=== PATIENT | female | born 1960 | race Caucasian/White ===

== ENCOUNTER 2016-06-11 13:24 | Day surgery (SDC) | payer MEDICARE, BC ==
[~2016-06-11 13:24] MED LIST: ACETAMINOPHEN WITH CODEINE 1 EACH TABLET PO PRN; GENTAMICIN SULFATE 80 MG in DEXTROSE 5 % IN WATER 100 ML IV PRN; MORPHINE SULFATE 2 MG/ML DISP.SYRIN IV PRN; OXYBUTYNIN CHLORIDE 5 MG TABLET PO PRN; RINGERS SOLUTION,LACTATED 1,000 ML IV PRN; oxyCODONE HCL/ACETAMINOPHEN 1 TAB TABLET PO PRN
[2016-06-11] MEDS ORDERED: BOTULINUM TOXIN TYPE A 100 UNITS VIAL IM PRN (14:26)
[2016-06-11] MEDS ORDERED: ONABOTULINUMTOXINA IM ONE (14:30)
[2016-06-11] MEDS ORDERED: RINGERS SOLUTION,LACTATED 1,000 ML IV ONE (15:00)
[2016-06-11] MEDS ORDERED: ceFAZolin SODIUM 1 GM VIAL IV ONE (15:05)
[2016-06-11 16:39] VITALS: BP 111/61
== END 2016-06-11 13:25 | disposition home or self-care (01) ==
LOC: AMB 13:24
PROVIDERS: ATTEND Urology
PROC: 3E0K8GC Introduction of Other Therapeutic Substance into Genitourinary Tract, Via Natural or Artificial Opening Endoscopic (ICD-10-PCS; principal; 2016-06-11 14:30)
DX: N39.41 Urge incontinence (principal); R35.0 Frequency of micturition; E78.5 Hyperlipidemia, unspecified; E03.9 Hypothyroidism, unspecified; I73.9 Peripheral vascular disease, unspecified; Z87.891 Personal history of nicotine dependence; Z68.37 Body mass index [BMI] 37.0-37.9, adult; Z87.440 Personal history of urinary (tract) infections
CPT/HCPCS: 52287; 87077; 87086; 87186; J0585

== ENCOUNTER 2019-04-11 03:01 | Inpatient (IN) ==
--- NOTE | 2019-04-11 03:18 | ERNOTE ---
Neuro HPI ER Record Time Seen by Provider: 04/11/19 03:01 Source: family, EMS Exam Limitations: clinical condition Immunizations: IMMUNIZATION HX Immunizations Up to Date No History of Influenza Vaccine No Hx Pneumococcal Vaccination No Allergies/Adverse Reactions: Allergies Allergy/AdvReac Type Severity Reaction Status Date / Time sulfamethoxazole Allergy Mild Hives Verified 04/09/19 13:47 [From Bactrim] trimethoprim [From Bactrim] Allergy Mild Hives Verified 04/09/19 13:47 Home Medications: HOME MEDICATIONS amitriptyline 100 mg tablet 100 mg PO HS #30 tab 05/11/18 [Last Taken Unknown] methenamine hippurate 1 gram tablet 100 mg PO BID tab 06/21/18 [Last Taken Unk nown] polyethylene glycol 3350 17 gram/dose oral powder 17 gm PO DAILY g 06/21/18 [Last Taken Unknown] vitamin B complex 1 tab PO DAILY 06/21/18 [Last Taken Unknown] levothyroxine 200 mcg tablet 200 mcg PO DAILY #30 tab 06/22/18 [Last Taken Unknown] chlorthalidone 25 mg tablet 25 mg PO DAILY #30 tab 09/01/18 [Last Taken Unknown] furosemide 40 mg tablet 40 mg PO DAILY #30 tab 09/01/18 [Last Taken Unknown] famotidine 20 mg tablet 20 mg PO DAILY #30 tab 10/09/18 [Last Taken Unknown] olanzapine 10 mg tablet 10 mg PO DAILY #30 tab 11/06/18 [Last Taken Unknown] ergocalciferol (vitamin D2) 50,000 unit capsule 50,000 unit PO QWEEK #14 cap 12/04/18 [Last Taken Unknown] atorvastatin 80 mg tablet 80 mg PO DAILY #90 tab 12/05/18 [Last Taken Unknown] bupropion HCl 100 mg tablet,12 hr sustained-release 200 mg PO HS #60 ea 01/02/19 [Last Taken Unknown] potassium chloride 20 mEq tablet,extended release(part/cryst) 40 meq PO BID tab 01/17/19 [Last Taken Unknown] baclofen 20 mg tablet 20 mg PO TID #90 tab 01/29/19 [Last Taken Unknown] lidocaine 5 % topical patch 2 - 3 patch TP DAILY #90 ea 01/29/19 [Last Taken Unknown] naloxegol 25 mg tablet 25 mg PO DAILY #30 tab 01/29/19 [Last Taken Unknown] topiramate 200 mg tablet 200 mg PO BID #60 tab 03/19/19 [Last Taken Unknown] estradiol-norethindrone acet 1 mg-0.5 mg tablet 1 tab PO DAILY #28 tab 04/02/19 [Last Taken Unknown] fentanyl 100 mcg/hr transdermal patch 100 mcg TP Q48H #15 ea 04/04/19 [Last Taken Unknown] trazodone 100 mg tablet 100 mg PO HS #30 tab 04/09/19 [Last Taken Unknown] Aspirin [Aspirin EC] 81 mg PO DAILY 04/11/19 [Last Taken Unknown] Butalb/Acetaminophen/Caffeine [Fioricet] 2 tab PO TID 04/11/19 [Last Taken Unknown] Dantrolene Sodium [Dantrium] 100 mg PO TID 04/11/19 [Last Taken Unknown] Diazepam [Valium] 3 tab PO HS 04/11/19 [Last Taken Unknown] Divalproex Sodium [Depakote ER] 1,000 mg PO HS 04/11/19 [Last Taken Unknown] Docusate Sodium [Colace] 200 mg PO BID 04/11/19 [Last Taken Unknown] Granisetron HCl [Kytril] 1 tab PO BID 04/11/19 [Last Taken Unknown] HYDROmorphone HCL [Dilaudid] 8 mg PO QID 04/11/19 [Last Taken Unknown] LORazepam [Ativan] 0.5 mg PO BID PRN 04/11/19 [Last Taken Unknown] Loratadine 1 tab PO DAILY 04/11/19 [Last Taken Unknown] Mirabegron [Myrbetriq] 25 mg PO DAILY 04/11/19 [Last Taken Unknown] Pumpkin Seed Extract/Soy Germ [Azo Bladder Control Capsule] 300 mg PO PRN PRN 04/11/19 [Last Taken Unknown] SUMAtriptan SUCCINATE [Imitrex] 1 - 2 tab PO DAILY PRN 04/11/19 [Last Taken Unknown] - History of Present Illness Narrative: Patient brought to the ER per EMS with chief complaint of decreased mental status for the past 4-1/2 to 5 hours. is unsure if she took medications or if there is another situation. Onset: >3 hours Severity: severe - Character of Deficits Additional Deficits: Present: cannot walk, cannot stand Baseline Cognition: Present: alert, oriented x 4 Review of Systems - Narrative Narrative: denies knowledge of any recent illnesses any other symptoms other than her chronic back pain. She did see her primary care doctor Dr. Berkowitz 2 days ago and there was a change in medications Medical History (Last Reviewed 04/11/19 @ 03:15 by Terence Mares DO) Knee pain, bilateral (Chronic) Urinary bladder incontinence (Chronic) Allergic rhinitis (Acute) Chronic pain syndrome (Chronic) Managed by [place] [facility] Hyperlipidemia with target LDL less than 100 (Chronic) Bladder wall thickening (Chronic) Hydronephrosis (Chronic) Urinary tract infection in female (Acute) Hernia of abdominal wall Onset Date: ~11/12/14 Hypovitaminosis D Mental status alteration Onset Date: ~07/05/15 Ventral hernia Onset Date: ~07/01/17 [facility] Anxiety Onset Date: ~09/16/13 Chronic GERD 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) Coronary artery disease Edema Onset Date: ~07/09/14 Bilateral in legs, worsening Hyperlipidemia due to dietary fat intake Onset Date: ~1989 Hypertension Onset Date: ~09/16/13 Hypothyroidism Onset Date: ~1979 Lumbar disc disease Onset Date: ~09/16/13 Osteoarthrosis Onset Date: ~09/16/13 Osteoporosis Onset Date: ~09/16/13 PAD (peripheral artery disease) Onset Date: ~09/16/13 Tremor Onset Date: ~07/03/15 UTI (urinary tract infection) Onset Date: 03/2018 Hyperlipidemia (Inactive) Surgical History: Surgical History (Last Reviewed 04/11/19 @ 03:15 by Terence Mares DO) History of back surgery 7 total surgeries- 80s-90s, 2001 Hx of appendectomy Hx of colonoscopy Onset Date: ~03/14/13 ; very capacious, redundant colon Hx of hernia repair Onset Date: ~08/28/17 [facility] Hx of ovarian cystectomy Onset Date: ~1979 Hx of vascular surgery 2006, 2008; Bilateral legs Family History: Family History (Last Reviewed 04/11/19 @ 03:15 by Terence Mares DO) Father , ( @ age 68) Brain tumor Mother , @ age 82 Heart disease Hypertension Social History: (Last Reviewed 04/11/19 @ 03:15 by Terence Mares DO) Social History: Marital status: current occupational status: disabled current occupation: disabled Highest education level completed: some college, no degree Service: No Tobacco: Smoking Status: Never smoker Alcohol: alcohol intake: former Substance Use: substance use type: does not use Dietary Habits: caffeine: No Physical Exam - Physical Exam General Appearance: Present: wd/wn, lethargic - responds to pain Head Exam: Present: normal inspection, no evidence of injury Eye Exam: Normal inspection: bilateral, PERRL: bilateral Ears, Nose, Throat: Present: normal ENT inspection Neck: Present: supple Respiratory: Present: no respiratory distress, no accessory muscle use, lungs clear Cardiovascular/Chest: Present: regular rate, rhythm, no murmur Gastrointestinal/Abdominal: Present: distended. Absent: guarding, rebound Back Exam: Present: other - Patient has multiple lidocaine patches on her mid to low back Extremity Exam: Present: normal inspection, no edema Neurological Exam: Present: other - Patient localizes to pain. Does not follow any instructions Skin Exam: Present: normal color, warm/dry Lymphatic Exam: Present: no adenopathy Zack Coma Scale - Assess Eye Opening: To Pain Motor: Localizes to Pain Verbal: None - Total Coma Scale Total: 8 Progress - Results and Orders Patient's Lab Results:: I have reviewed the patient's lab results. - Vital Signs Patient's Vital Signs:: I have reviewed the patient's vital signs. - EKG EKG #1 EKG: supraventricular tachycardia - sinus tach, RBBB - incomplete - X-Ray X-Ray #1 X-Ray: chest Interpretation: Interp. by me X-ray Comments: Limited AP view of the chest due to poor inspiration. No infiltrate, edema or effusion noted. - CT/Ultrasound CT/Ultrasound Narrative: CT brain without contrast: No acute disease of the brain. - Progress/Reassessment Progress Note-Subjective: 04/11/19 03:38 stated that she has been acting more funny since taking her medications before bedtime and believes it is one of the medications. Possibly a new medication that her PCP gave her at the last visit. Review of the notes with her primary care physician 2 days ago found an increase in trazodone from 50 to 100 mg at at bedtime. 04/11/19 04:21 Patient blood pressure dropped to 68/42 despite IV fluids running at bolus rate, respiratory rate aslo down to 8. Patient was given 0.5 mg of Narcan IV. Pt. was awake and alert but still repeating answers and somewhat confused approximately 10 minutes after administration. Blood pressure quickly came up and need for O2 quickly disappeared 04/11/19 04:23 Patient did complain of increased pain and patient was given 30 mg of Toradol IV 04/11/19 05:38 Approximately 1 hour after the Narcan was given patient began to relax and sleep again. 2 L of oxygen per nasal cannula was again initiated and patient maintaining 95% O2 saturation. Blood pressure began to fall IV normal saline was again initiated at 999 mils per hour. She was placed in Trendelenburg and blood pressure continued to drop and Levophed drip was ordered. 04/11/19 06:[address] Arrieta at 05:55 and she agrees with admission to the SCU. Departure Clinical Impression: Acute alteration in mental status Medication overdose Qualifiers: Encounter type: initial encounter Injury intent: accidental or unintentional Qualified Code(s): T50.901A - Poisoning by unspecified drugs, medicaments and biological substances, accidental (unintentional), initial encounter Hypotension Qualifiers: Hypotension type: hypotension due to drug Qualified Code(s): I95.2 - Hypotension due to drugs - Departure Disposition: Still a patient Condition: Serious
[2019-04-11 03:29] LABS: Hematocrit 44.6 % (37.0-47.0); Hemoglobin 14.2 gm/dL (12.5-16.0); Mean Cell Volume 98.5 fl (78-100); Mean Corpuscular Hemoglobin 31.3 pg (27-31); Mean Corpuscular Hgb Conc 31.8 g/dl (32-36); Mean Platelet Volume 9.9 fl (8-12.5); Neutrophil # 4.4 K/mm3 (1.3-6.0); Neutrophil % 66.4 % (42-75.0); Platelet Count 230 K/mm3 (150-450); Red Blood Count 4.53 M/mm3 (4.2-5.4); Red Cell Distribution Width 13.6 % (11.5-14.0); White Blood Count 6.6 K/mm3 (4.0-10.5)
[2019-04-11] MEDS ORDERED: NORMAL SALINE 1,000 ML IV ONE ×2 (03:37→05:26)
[2019-04-11 03:41] LABS: INR 1.01 INR (0.92-1.08)
[2019-04-11 03:42] LABS: Urine Bilirubin Negative (NEGATIVE); Urine Blood 50 /ul (NEGATIVE); Urine Ketone Negative (NEGATIVE); Urine Nitrite Negative (NEGATIVE); Urine Protein 30 mg/dL (NEGATIVE); Urine Specific Gravity 1.025 SP.GR. (1.005-1.010); Urine Urobilinogen Normal (NORMAL); Urine pH 5.5 pH (5.0-7.0)
[2019-04-11 03:43] LABS: Albumin * 3.4 gm/dl (3.4-5.0); Anion Gap 16.4 mmol/L (6.8-13.8); BUN/Creatinine Ratio 24.8 (9.0-21.6); Bilirubin, Total 0.2 mg/dL (0.0-1.1); Calcium * 8.8 mg/dL (7.9-10.9); Carbon Dioxide 24.5 mmol/L (24-32.6); Potassium 2.9 mmol/L (3.4-4.6); Total Protein 7.7 gm/dL (6.2-8.2)
[2019-04-11 03:48] LABS: Urine Amorphous Sediment Moderate - 2+ (NONE-FEW); Urine Appearance Slightly Cloudy (CLEAR); Urine Bacteria 2+; Urine Color Yellow; Urine RBC TRACE /hpf (0-5); Urine WBC 0-5 /hpf (0-5)
[2019-04-11] MEDS ORDERED: NALOXONE HCL 1 MG/1 ML SYRG IV ONE (03:49)
[2019-04-11 03:54] LABS: Cocaine Ur Negative (NEGATIVE); Urine Barbiturate Positive (NEGATIVE); Urine Benzodiazepines Positive (NEGATIVE); Urine Opiates Positive (NEGATIVE); Urine PCP Negative (NEGATIVE); Urine THC Negative (NEGATIVE)
[2019-04-11] MEDS ORDERED: KETOROLAC TROMETHAMINE 30 MG/ML VIAL IV ONE (04:15)
[2019-04-11 04:24] LABS: Salicylate 13.8 mg/dL (2.8-20.0)
[2019-04-11] MEDS ORDERED: ACETAMINOPHEN 1,000 MG/100 ML BTL IV ONE (04:32)
[2019-04-11] MEDS ORDERED: NOREPINEPHRINE BITARTRATE 4 MG in DEXTROSE 5 % IN WATER 496 ML IV PRN ×2 (05:36)
[2019-04-11] MEDS: POTASSIUM CHLORIDE IN WATER 100 ML IV SCH ×5 (06:16→10:12)
[2019-04-11 06:44] LABS: Valproic Acid 47.3 mcg/mL (50.0-100.0)
--- NOTE | 2019-04-11 08:57 | ANES ---
Anesthesia Procedure Note Procedure Note: ANESTHESIA PROCEDURE NOTE Date of Procedure: [04/11/2019 Time of procedure: 8:35 AM. Performed by: FELTON Quiñones CRNA, MSN Preprocedure diagnosis: Altered mental status, hypotension, lack of venous access. Post procedure diagnosis: Same. Procedure: Venipuncture for IV access. Indications: Lack of venous access, hypotension. Findings: See below. Details of the procedure: The patient was prepped with Betadine and alcohol, using a lighted vein finder, a number 22-gauge IV was initiated in the right foot. The IV was flushed with sterile saline solution and secured in place by the attending RN. EBL: Minimal. Fluids: N/A. Specimen: N/A. Post procedure condition: The patient tolerated the procedure well with 1 verbalization, which I assume her presented pain, as the needle was entering the vein. No complications were noted. Thank you for this consultation. Diogenes Macdonald CRNA, ARNP, MSN
[2019-04-11] MEDS ORDERED: PHENTOLAMINE MESYLATE 5 MG/ML VIAL ID ONE (09:45)
[2019-04-11] MEDS: NORMAL SALINE 1,000 ML IV PRN (09:52)
[2019-04-11] MEDS ORDERED: HYDROmorphone HCL 2 MG TABLET PO PRN (10:27)
[2019-04-11] MEDS ORDERED: HYALURONIDASE,OVINE 200 UNIT/ML VIAL ID ONE (10:45)
[2019-04-11 11:19] LABS: Anion Gap 12.8 mmol/L (6.8-13.8); BUN/Creatinine Ratio 25.2 (9.0-21.6); Calcium * 7.9 mg/dL (7.9-10.9); Carbon Dioxide 25.8 mmol/L (24-32.6); Estimated Creat Clear 44.2; Potassium 4.6 mmol/L (3.4-4.6); Salicylate 6.1 mg/dL (2.8-20.0)
[2019-04-11] MEDS: ENOXAPARIN SODIUM 40 MG/0.4 ML SYRG SC SCH (11:24)
--- NOTE | 2019-04-11 11:34 | HP ---
Chief Complaint - Chief Complaint Date of Service: 04/11/19 Time of Service: 11:12 Chief Complaint: Obtunded History of Present Illness: This is a 58-year-old woman who has chronic low back and bilateral knee pain. She has failed back syndrome, having had 7 surgeries on her low back, the most recent in 2001. There are no surgical options remaining. Her pain has been severe, and medication such as NSAIDs and Tylenol have been unhelpful. She has been followed by the pain clinic in [place]. She also has chronic insomnia, anxiety and depression and osteoporosis. Benzodiazepines have failed to help her sleep, so 2 days ago we began a diazepam taper, the medication she has used most recently, which she has found unhelpful. We added trazodone to help her sleep. Her noticed about 10:00 last night that she was lethargic and making no sense. He is not sure exactly what happened, but thinks she may have taken too much medication inadvertently. In the ER she was obtunded responding only to pain. Her potassium was 2.9. Tess rtly after arrival in the ER, her systolic blood pressure dropped to 66. The remainder of her blood work was unremarkable. Specifically her CBC. Aside from the low potassium, her chemistries showed a decreased GFR, which is chronic. Her urine drug screen was as expected. The emergency room started parenteral potassium. They tried several doses of Narcan, and after each 1 she would wake up apparently in pain, so the decision was made to simply let the medication effects wear off. Now she is still obtunded, but will respond to voice and touch. When she awakes she is apparently in pain. Her blood pressure has been supported with fluids and Levophed. Her blood pressure is now doing better, so we will begin a taper of Levophed. She normally wears a fentanyl patch, however does not have one on now. Medical History (Last Reviewed 04/11/19 @ 11:20 by Hoang Bruce MD) Knee pain, bilateral (Chronic) Urinary bladder incontinence (Chronic) Allergic rhinitis (Acute) Chronic pain syndrome (Chronic) Managed by [place] [facility] Hyperlipidemia with target LDL less than 100 (Chronic) Bladder wall thickening (Chronic) Hydronephrosis (Chronic) Urinary tract infection in female (Acute) Hernia of abdominal wall Onset Date: ~06/23/15 Hypovitaminosis D Mental status alteration Onset Date: ~07/05/15 Ventral hernia Onset Date: ~07/01/17 [facility] Anxiety Onset Date: ~09/16/13 Chronic GERD 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) Coronary artery disease Edema Onset Date: ~07/09/14 Bilateral in legs, worsening Hyperlipidemia due to dietary fat intake Onset Date: ~1989 Hypertension Onset Date: ~09/16/13 Hypothyroidism Onset Date: ~1979 Lumbar disc disease Onset Date: ~09/16/13 Osteoarthrosis Onset Date: ~09/16/13 Osteoporosis Onset Date: ~09/16/13 PAD (peripheral artery disease) Onset Date: ~09/16/13 Tremor Onset Date: ~07/03/15 UTI (urinary tract infection) Onset Date: 03/2018 Hyperlipidemia (Inactive) Surgical History: Surgical History (Last Reviewed 04/11/19 @ 11:20 by Hoang Bruce MD) History of back surgery 7 total surgeries- s-s, 2001 Hx of appendectomy Hx of colonoscopy Onset Date: ~03/14/13 ; very capacious, redundant colon Hx of hernia repair Onset Date: ~08/28/17 [facility] Hx of ovarian cystectomy Onset Date: ~1979 Hx of vascular surgery 2006, 2008; Bilateral legs Family History: Family History (Last Reviewed 04/11/19 @ 11:20 by Hoang Bruce MD) Father , ( @ age 68) Brain tumor Mother , @ age 82 Heart disease Hypertension Social History: (Last Reviewed 04/11/19 @ 11:20 by Hoang Bruce MD) Social History: Marital status: current occupational status: disabled current occupation: disabled Highest education level completed: some college, no degree Service: No Tobacco: Smoking Status: Never smoker Alcohol: alcohol intake: former Substance Use: substance use type: does not use Dietary Habits: caffeine: No Review Of Systems (GEN) - Review of Systems Generalized/Overall Review: Present: No Symptoms Reported - Unable to provide most of the review of systems because she is lethargic. She still makes no sense when she tries to talk. It appears on the other hand that she is having back pain, plus pain in the site where she is getting potassium riders. Additional Comments: We will repeat her BMP now, and poison control has recommended a repeat salicylate level which we will also do. Immunizations: IMMUNIZATION HX Immunizations Up to Date No History of Influenza Vaccine No Hx Pneumococcal Vaccination No Allergies/Adverse Reactions: Allergies Allergy/AdvReac Type Severity Reaction Status Date / Time sulfamethoxazole Allergy Mild Hives Verified 04/09/19 13:47 [From Bactrim] trimethoprim [From Bactrim] Allergy Mild Hives Verified 04/09/19 13:47 Home Medications: HOME MEDICATIONS methenamine hippurate 1 gram tablet 100 mg PO BID tab 06/21/18 [Last Taken Unknown] polyethylene glycol 3350 17 gram/dose oral powder 17 gm PO DAILY g 06/21/18 [Last Taken Unknown] vitamin B complex 1 tab PO DAILY 06/21/18 [Last Taken Unknown] levothyroxine 200 mcg tablet 200 mcg PO DAILY #30 tab 06/22/18 [Last Taken Unknown] chlorthalidone 25 mg tablet 25 mg PO DAILY #30 tab 09/01/18 [Last Taken Unknown] furosemide 40 mg tablet 40 mg PO DAILY #30 tab 09/01/18 [Last Taken Unknown] famotidine 20 mg tablet 20 mg PO DAILY #30 tab 10/09/18 [Last Taken Unknown] olanzapine 10 mg tablet 10 mg PO DAILY #30 tab 11/06/18 [Last Taken Unknown] ergocalciferol (vitamin D2) 50,000 unit capsule 50,000 unit PO QWEEK #14 cap 12/04/18 [Last Taken Unknown] atorvastatin 80 mg tablet 80 mg PO DAILY #90 tab 12/05/18 [Last Taken Unknown] bupropion HCl 100 mg tablet,12 hr sustained-release 200 mg PO HS #60 ea 01/02/19 [Last Taken Unknown] potassium chloride 20 mEq tablet,extended release(part/cryst) 40 meq PO BID tab 01/17/19 [Last Taken Unknown] baclofen 20 mg tablet 20 mg PO TID #90 tab 01/29/19 [Last Taken Unknown] lidocaine 5 % topical patch 2 - 3 patch TP DAILY #90 ea 01/29/19 [Last Taken Unknown] naloxegol 25 mg tablet 25 mg PO DAILY #30 tab 01/29/19 [Last Taken Unknown] topiramate 200 mg tablet 200 mg PO BID #60 tab 03/19/19 [Last Taken Unknown] estradiol-norethindrone acet 1 mg-0.5 mg tablet 1 tab PO DAILY #28 tab 04/02/19 [Last Taken Unknown] fentanyl 100 mcg/hr transdermal patch 100 mcg TP Q48H #15 ea 04/04/19 [Last Taken Unknown] trazodone 100 mg tablet 100 mg PO HS #30 tab 04/09/19 [Last Taken Unknown] Aspirin [Aspirin EC] 81 mg PO DAILY 04/11/19 [Last Taken Unknown] Butalb/Acetaminophen/Caffeine [Fioricet] 2 tab PO TID PRN 04/11/19 [Last Taken Unknown] Dantrolene Sodium [Dantrium] 100 mg PO TID 04/11/19 [Last Taken Unknown] Diazepam [Valium] 2 mg PO HS 04/11/19 [Last Taken Unknown] Divalproex Sodium [Depakote ER] 1,000 mg PO HS 04/11/19 [Last Taken Unknown] Docusate Sodium [Colace] 200 mg PO BID 04/11/19 [Last Taken Unknown] Granisetron HCl [Kytril] 1 tab PO BID 04/11/19 [Last Taken Unknown] HYDROmorphone HCL [Dilaudid] 8 mg PO QID 04/11/19 [Last Taken Unknown] LORazepam [Ativan] 0.5 mg PO BID PRN 04/11/19 [Last Taken Unknown] Loratadine 10 mg PO DAILY 04/11/19 [Last Taken Unknown] Mirabegron [Myrbetriq] 25 mg PO DAILY 04/11/19 [Last Taken Unknown] Pumpkin Seed Extract/Soy Germ [Azo Bladder Control Capsule] 300 mg PO PRN PRN 04/11/19 [Last Taken Unknown] SUMAtriptan SUCCINATE [Imitrex] 1 - 2 tab PO DAILY PRN 04/11/19 [Last Taken Unknown] Exam - Exam Vital Signs: Vital Signs - Last Taken Temp 36.9 C 04/11/19 10:40 Pulse 102 H 04/11/19 10:49 Resp 14 04/11/19 10:49 BP 120/60 04/11/19 10:49 Pulse Ox 99 04/11/19 10:49 Constitutional: Present: Well developed, Well nourished, No distress, Lethargic, Looks Older than stated age ENT Exam: Present: normal ENT inspection Eye Exam: bilateral eye: normal inspection, PERRL Neck: Present: normal inspection. Absent: lymphadenopathy (R), lymphadenopathy (L), thyromegaly Back Exam: Present: normal inspection, other - has apparent pain when pressure is applied to her lumbosacral spine Respiratory: Present: lungs clear, no respiratory distress Cardiovascular/Chest: Present: regular rate, rhythm, no gallop, no JVD, no murmur, edema - Chronic edema in her lower extremities. Peripheral Pulses: carotid (R): 1+, carotid (L): 1+, femoral (R): 1+, femoral (L): 1+ Abdomen: Present: Normal bowel sounds, soft, nondistended, no hepatospenomegaly, no masses, obese - BMI is 30 /Rectal: Present: Exam deferred Extremity: Present: normal capillary refill, lower extremity edema Skin Exam: Present: no cyanosis, cool/dry, pallor Lymphatic: Present: no adenopathy Neurologic: Present: other - Is normally wheelchair-bound. Absent: alert, oriented x 3 Appearance: Present: appropriate appearance Eye contact: Absent: good eye contact, normal speech, decreased rate of speech Thoughts: Present: incoherent Diagnostic Studies: Abnormal Lab Results 04/11/19 04/11/19 04/11/19 Range/Units 03:10 03:28 03:28 MCH 31.3 H (27-31) pg MCHC 31.8 L (32-36) g/dl Immature Gran % (Auto) 0.60 H (0.001-0.429) % Immature Gran # (Auto) 0.04 H (0.000-0.0310) K/mm3 Lymphocytes # 1.41 L (1.5-3.5) k/mm3 ESR 52 H (0-15) mm/hr Potassium (3.4-4.6) mmol/L Anion Gap (6.8-13.8) mmol/L BUN (3-23) mg/dL Est GFR (Non-Af Amer) (60-130) mL/min BUN/Creatinine Ratio (9.0-21.6) Random Glucose (70-110) mg/dL ALT (19-67) U/L Urine Protein (NEGATIVE) mg/dL Urine Blood (NEGATIVE) /ul Ur Leukocyte Esterase (NEGATIVE) /ul Amorphous Sediment (NONE-FEW) Urine Bacteria (NONE) Urine Opiates Screen (NEGATIVE) Acetaminophen (10.0-30.0) mcg/mL Barbiturate Screen (NEGATIVE) Valproic Acid 47.3 L (50.0-100.0) mcg/mL U Benzodiazepines Scrn (NEGATIVE) 04/11/19 04/11/19 04/11/19 Range/Units 03:28 03:28 03:34 MCH (27-31) pg MCHC (32-36) g/dl Immature Gran % (Auto) (0.001-0.429) % Immature Gran # (Auto) (0.000-0.0310) K/mm3 Lymphocytes # (1.5-3.5) k/mm3 ESR (0-15) mm/hr Potassium 2.9 L (3.4-4.6) mmol/L Anion Gap 16.4 H (6.8-13.8) mmol/L BUN 31 H (3-23) mg/dL Est GFR (Non-Af Amer) 46 L D (60-130) mL/min BUN/Creatinine Ratio 24.8 H (9.0-21.6) Random Glucose 139 H (70-110) mg/dL ALT 9 L (19-67) U/L Urine Protein 30 H (NEGATIVE) mg/dL Urine Blood 50 H (NEGATIVE) /ul Ur Leukocyte Esterase 100 H (NEGATIVE) /ul Amorphous Sediment Moderate - 2+ H (NONE-FEW) Urine Bacteria 2+ H (NONE) Urine Opiates Screen (NEGATIVE) Acetaminophen Less than 0.2 L (10.0-30.0) mcg/mL Barbiturate Screen (NEGATIVE) Valproic Acid (50.0-100.0) mcg/mL U Benzodiazepines Scrn (NEGATIVE) 04/11/19 Range/Units 03:34 MCH (27-31) pg MCHC (32-36) g/dl Immature Gran % (Auto) (0.001-0.429) % Immature Gran # (Auto) (0.000-0.0310) K/mm3 Lymphocytes # (1.5-3.5) k/mm3 ESR (0-15) mm/hr Potassium (3.4-4.6) mmol/L Anion Gap (6.8-13.8) mmol/L BUN (3-23) mg/dL Est GFR (Non-Af Amer) (60-130) mL/min BUN/Creatinine Ratio (9.0-21.6) Random Glucose (70-110) mg/dL ALT (19-67) U/L Urine Protein (NEGATIVE) mg/dL Urine Blood (NEGATIVE) /ul Ur Leukocyte Esterase (NEGATIVE) /ul Amorphous Sediment (NONE-FEW) Urine Bacteria (NONE) Urine Opiates Screen Positive H (NEGATIVE) Acetaminophen (10.0-30.0) mcg/mL Barbiturate Screen Positive H (NEGATIVE) Valproic Acid (50.0-100.0) mcg/mL U Benzodiazepines Scrn Positive H (NEGATIVE) Laboratory Results WBC 6.6 K/mm3 (4.0-10.5) 04/11/19 03:28 RBC 4.53 M/mm3 (4.2-5.4) 04/11/19 03:28 Hgb 14.2 gm/dL (12.5-16.0) 04/11/19 03:28 Hct 44.6 % (37.0-47.0) 04/11/19 03:28 MCV 98.5 fl (78-100) 04/11/19 03:28 MCH 31.3 pg (27-31) H 04/11/19 03:28 MCHC 31.8 g/dl (32-36) L 04/11/19 03:28 RDW 13.6 % (11.5-14.0) 04/11/19 03:28 Plt Count 230 K/mm3 (150-450) 04/11/19 03:28 MPV 9.9 fl (8-12.5) 04/11/19 03:28 Immature Gran % (Auto) 0.60 % (0.001-0.429) H 04/11/19 03:28 Immature Gran # (Auto) 0.04 K/mm3 (0.000-0.0310) H 04/11/19 03:28 Neutrophils % 66.4 % (42-75.0) 04/11/19 03:28 Lymphocytes % 21.4 % (20-51) 04/11/19 03:28 Monocytes % 8.4 % (0.0-9) 04/11/19 03:28 Eosinophils % 2.4 % (0.0-3.0) 04/11/19 03:28 Basophils % 0.8 % (0.0-1.0) 04/11/19 03:28 Nucleated RBC % 0.0 k/mm3 (0-1) 04/11/19 03:28 Neutrophils # 4.4 K/mm3 (1.3-6.0) 04/11/19 03:28 Lymphocytes # 1.41 k/mm3 (1.5-3.5) L 04/11/19 03:28 Monocytes # 0.6 k/mm3 (0.0-1.0) 04/11/19 03:28 Eosinophils # 0.2 k/mm3 (0.0-0.7) 04/11/19 03:28 Absolute Basophils 0.1 k/mm3 (0.0-0.1) 04/11/19 03:28 ESR 52 mm/hr (0-15) H 04/11/19 03:28 PT 10.0 Seconds (9.1-10.7) 04/11/19 03:28 INR (Anticoag Therapy) 1.01 INR (0.92-1.08) 04/11/19 03:28 PTT (Gordon) 31.0 Seconds (24-32) 04/11/19 03:28 Sodium 137 mmol/L (132-142) 04/11/19 03:28 Plasma Sodium 138 mmol/L (130-142) 04/11/19 03:28 Potassium 2.9 mmol/L (3.4-4.6) L 04/11/19 03:28 Chloride 99 mmol/L (97-106) 04/11/19 03:28 Carbon Dioxide 24.5 mmol/L (24-32.6) 04/11/19 03:28 Anion Gap 16.4 mmol/L (6.8-13.8) H 04/11/19 03:28 BUN 31 mg/dL (3-23) H 04/11/19 03:28 Creatinine 1.25 mg/dL (0.4-1.4) 04/11/19 03:28 Est GFR (Non-Af Amer) 46 mL/min (60-130) L D 04/11/19 03:28 BUN/Creatinine Ratio 24.8 (9.0-21.6) H 04/11/19 03:28 Random Glucose 139 mg/dL (70-110) H 04/11/19 03:28 Calcium 8.8 mg/dL (7.9-10.9) 04/11/19 03:28 Calcium Adj for Albumin 9.0 mg/dL (8.4-10.2) 04/11/19 03:28 Total Bilirubin 0.2 mg/dL (0.0-1.1) 04/11/19 03:28 AST 10 U/L (0-48) 04/11/19 03:28 ALT 9 U/L (19-67) L 04/11/19 03:28 Alkaline Phosphatase 113 U/L (50-170) 04/11/19 03:28 Total Protein 7.7 gm/dL (6.2-8.2) 04/11/19 03:28 Albumin 3.4 gm/dl (3.4-5.0) 04/11/19 03:28 Urine Color Yellow 04/11/19 03:34 Urine Appearance Slightly cloudy (CLEAR) 04/11/19 03:34 Urine pH 5.5 pH (5.0-7.0) 04/11/19 03:34 Ur Specific [place] 1.025 SP.GR. (1.005-1.010) 04/11/19 03:34 Urine Protein 30 mg/dL (NEGATIVE) H 04/11/19 03:34 Urine Glucose (UA) Negative mg/dL (NEGATIVE) 04/11/19 03:34 Urine Ketones Negative mg/dL (NEGATIVE) 04/11/19 03:34 Urine Blood 50 /ul (NEGATIVE) H 04/11/19 03:34 Urine Nitrate Negative (NEGATIVE) 04/11/19 03:34 Urine Bilirubin Negative mg/dl (NEGATIVE) 04/11/19 03:34 Prot Sulfosalicylic Acd 1+ mg/dL (0) 04/11/19 03:34 Urine Urobilinogen Normal EU/dl (NORMAL) 04/11/19 03:34 Ur Leukocyte Esterase 100 /ul (NEGATIVE) H 04/11/19 03:34 Urine RBC Trace /hpf (0-5) 04/11/19 03:34 Urine WBC 0-5 /hpf (0-5) 04/11/19 03:34 Ur Epithelial Cells 0-5 /hpf (0-5) 04/11/19 03:34 Amorphous Sediment Moderate - 2+ (NONE-FEW) H 04/11/19 03:34 Urine Bacteria 2+ (NONE) H 04/11/19 03:34 Urine Culture Comments Culture to follow 04/11/19 03:34 Salicylates 13.8 mg/dL (2.8-20.0) 04/11/19 03:28 Urine Opiates Screen Positive (NEGATIVE) H 04/11/19 03:34 Acetaminophen Less than 0.2 mcg/mL (10.0-30.0) L 04/11/19 03:28 Barbiturate Screen Positive (NEGATIVE) H 04/11/19 03:34 Valproic Acid 47.3 mcg/mL (50.0-100.0) L 04/11/19 03:10 Ur Phencyclidine Scrn Negative (NEGATIVE) 04/11/19 03:34 Urine Amphetamine Negative (NEGATIVE) 04/11/19 03:34 U Benzodiazepines Scrn Positive (NEGATIVE) H 04/11/19 03:34 Urine Cocaine Screen Negative (NEGATIVE) 04/11/19 03:34 Urine Marijuana (THC) Negative (NEGATIVE) 04/11/19 03:34 Assessment/Plan - Assessment/Plan (1) Acute alteration in mental status Assessment: Is somewhat better now in the ICU. We will only add medications back as her clinical situation dictates. Generally speaking, we will minimize her medications. I explained this plan to her , who is in agreement. Problem: Acute (2) Medication overdose Assessment: We are withholding most of her medications at the present time. We will allow the opiate side effects to simply wear off. Poison control has requested a repeat salicylate level which we will do now. Problem: Acute Qualifiers: Encounter type: initial encounter Injury intent: accidental or unintentional Qualified Code(s): T50.901A - Poisoning by unspecified drugs, medicaments and biological substances, accidental (unintentional), initial encounter (3) Hypotension Assessment: Hypotension is improving. We will taper off the Levophed. Problem: Acute Qualifiers: Hypotension type: hypotension due to drug Qualified Code(s): I95.2 - Hypotension due to drugs (4) Hypokalemia Assessment: She has received IV potassium replacement. We will check a BMP now. Problem: Acute (5) Chronic intractable pain Problem: Chronic (6) Failed back syndrome of lumbar spine Problem: Chronic (7) Peripheral edema Problem: Chronic (8) Insomnia Problem: Chronic Qualifiers: Insomnia type: primary Qualified Code(s): F51.01 - Primary insomnia (9) CAD (coronary artery disease) Problem: Chronic Qualifiers: Coronary Disease-Associated Artery/Lesion type: unspecified vessel or lesion type [place] vs. transplanted heart: [place] heart Associated angina: without angina Qualified Code(s): I25.10 - Atherosclerotic heart disease of [place] coronary artery without angina pectoris
[2019-04-11] MEDS: HYDROmorphone HCL 2 MG TABLET PO PRN (20:35)
[2019-04-12] MEDS: HYDROmorphone HCL 2 MG TABLET PO PRN ×4 (02:40→21:01)
[2019-04-12 06:24] LABS: Hematocrit 40.9 % (37.0-47.0); Hemoglobin 13.3 gm/dL (12.5-16.0); Mean Cell Volume 96.9 fl (78-100); Mean Corpuscular Hemoglobin 31.5 pg (27-31); Mean Corpuscular Hgb Conc 32.5 g/dl (32-36); Mean Platelet Volume 9.9 fl (8-12.5); Neutrophil # 4.7 K/mm3 (1.3-6.0); Neutrophil % 70.6 % (42-75.0); Platelet Count 198 K/mm3 (150-450); Red Blood Count 4.22 M/mm3 (4.2-5.4); Red Cell Distribution Width 13.6 % (11.5-14.0); White Blood Count 6.7 K/mm3 (4.0-10.5)
[2019-04-12 06:43] LABS: Albumin * 2.9 gm/dl (3.4-5.0); Anion Gap 11.1 mmol/L (6.8-13.8); Bilirubin, Total 0.4 mg/dL (0.0-1.1); Ca. Corrected For Albumin 9.1 mg/dL (8.4-10.2); Calcium * 8.5 mg/dL (7.9-10.9); Carbon Dioxide 25.4 mmol/L (24-32.6); Potassium 3.5 mmol/L (3.4-4.6); Total Protein 6.9 gm/dL (6.2-8.2)
[2019-04-12 06:52] LABS: BUN/Creatinine Ratio 19.7 (9.0-21.6)
--- NOTE | 2019-04-12 07:36 | PN ---
Subjective - Date and Time Seen Date: 04/12/19 Time: 07:16 Subjective Narrative: Mrs. Sawyer is much better this morning. She has no exact memory of what happened on the night she came to the hospital. She thinks it is possible that she became confused with her opiate medication. She is awake and alert and not confused at all this morning. Her Levophed drip is almost completely off. She is complaining of her usual intractable low back pain. At home she normally uses a fentanyl patch 100 mcg every 48 hours. She also uses Dilaudid 8 mg 4 times a day. We will restart the patch and make the Dilaudid 4 times per day as needed for breakthrough pain. We will minimize the medications she is using. We will stop her Murphy, get her up in a chair and she may use the commode. Diet will now be clear liquids. I estimate she will be here 2 more days. Hopefully tomorrow we can transfer her to the regular floor. Objective - Review of Systems Generalized/Overall Review: Reports: Malaise EENTM: Denies: Eye Pain, Blurred Vision Respiratory: Denies: Cough, Shortness of Breath Cardiac: Denies: Chest Pain, Palpitations Abdominal: Denies: Nausea Genitourinary Symptoms: Reports: Burning - Chronically off and on has Murphy now Musculoskeletal Complaints: Reports: Back Pain Neurological: Denies: Headache, Anxiety Skin: Denies: Lesions, Rash Endocrine: Denies: No Symptoms Reported Misc: All systems neg except as marked - Mild edema lower extremities. This becomes much worse when she is sitting up in a wheelchair all day long. - Vitals Vitals: Last Vital Signs Temp 37.1 C 04/12/19 07:00 Pulse 112 H 04/12/19 07:00 Resp 12 04/12/19 07:00 BP 131/64 04/12/19 07:00 Pulse Ox 100 04/12/19 07:00 - Abnormal Lab Findings Abnormal Lab Findings: Abnormal Lab Results 04/11/19 04/12/19 04/12/19 Range/Units 11:06 06:23 06:23 MCH 31.5 H (27-31) pg Lymphocytes % 17.3 L (20-51) % Monocytes % 9.2 H (0.0-9) % Lymphocytes # 1.16 L (1.5-3.5) k/mm3 Plasma Sodium 143 H (130-142) mmol/L Chloride 108 H (97-106) mmol/L BUN 27 H (3-23) mg/dL Est GFR (Non-Af Amer) 56 L D (60-130) mL/min BUN/Creatinine Ratio 25.2 H (9.0-21.6) Random Glucose 133 H (70-110) mg/dL ALT 8 L (19-67) U/L Albumin 2.9 L (3.4-5.0) gm/dl - Exam Constitutional: Present: Alert, Oriented x3, Cooperative, Well developed, Well nourished, No distress, Obese ENT Exam: Present: normal ENT inspection, hearing grossly normal Neck: Present: normal inspection. Absent: lymphadenopathy (R), lymphadenopathy (L), thyromegaly Breasts: Present: Exam deferred Respiratory: Present: lungs clear, no respiratory distress Cardiovascular/Chest: Present: regular rate, rhythm, no chest tenderness, no gallop, no JVD, no murmur, edema - Chronic both lower extremities Abdomen: Present: Normal bowel sounds, soft, nontender, nondistended, no hepatospenomegaly, no masses, obese /Rectal: Present: Exam deferred Extremity: Present: no calf tenderness, lower extremity edema Skin Exam: Present: normal color, warm/dry, no cyanosis Lymphatic: Present: no adenopathy Neurologic: Present: other - Chronic anxiety Appearance: Present: appropriate appearance, appropriate insight, neat, no memory impairment Eye contact: Present: cooperative, good eye contact, normal speech Thoughts: Present: normal thought pattern Cauti Physician Documentation - Urinary Catheter Management Urethral (Murphy) Date of Insertion: 04/11/19 Time of Insertion: 03:30 Assessment/Plan - Problems/Diagnosis (1) Acute alteration in mental status Problem: Resolved (2) Medication overdose Problem: Resolved Qualifiers: Encounter type: subsequent encounter Injury intent: accidental or unintentional Qualified Code(s): T50.901D - Poisoning by unspecified drugs, medicaments and biological substances, accidental (unintentional), subsequent encounter (3) Hypotension Problem: Acute Qualifiers: Hypotension type: hypotension due to drug Qualified Code(s): I95.2 - Hypotension due to drugs Narrative: Levophed is almost completely discontinued. The plan will be to stop it sometime today. (4) Hypokalemia Problem: Resolved Narrative: Potassium is 3.5 today. We will check a BMP tomorrow. CBC today was normal. CMP was normal except for a low albumin. (5) Chronic intractable pain Problem: Chronic (6) Failed back syndrome of lumbar spine Problem: Chronic (7) Peripheral edema Problem: Chronic (8) Insomnia Problem: Chronic Qualifiers: Insomnia type: primary Qualified Code(s): F51.01 - Primary insomnia (9) CAD (coronary artery disease) Problem: Chronic Qualifiers: Coronary Disease-Associated Artery/Lesion type: unspecified vessel or lesion type [place] vs. transplanted heart: [place] heart Associated angina: without angina Qualified Code(s): I25.10 - Atherosclerotic heart disease of [place] coronary artery without angina pectoris
[2019-04-12] MEDS: fentaNYL 100 MCG PATCH.TD72 TD SCH (07:49)
[2019-04-12] MEDS: NORMAL SALINE 1,000 ML IV PRN (09:51)
[2019-04-12] MEDS: ENOXAPARIN SODIUM 40 MG/0.4 ML SYRG SC SCH (09:51)
[2019-04-12] MEDS: ONDANSETRON 8 MG TAB.RAPDIS PO SCH ×3 (12:09→20:39)
--- NOTE | 2019-04-12 13:04 | PN ---
Melissa Note - Interim Date: 04/12/19 Time: 13:00 Narrative: 04/12/19 13:00 Mrs. Sawyer has chronic severe intractable back pain. She had been seeing the [facility] till they closed. They had prescribed and she was stable on fentanyl patches 100mcg q72 hours and dilaudid 8 mg four times daily routine. When the clinic closed we agreed to take over pain management and have consistently prescribed the same doses of opiates. We have restarted opiates now and have kept the types and doses the same, except we changed the dilaudid from routine to prn.
[2019-04-12] MEDS: LIDOCAINE 1 PATCH ADH..PATCH TP SCH (14:53)
[2019-04-12] MEDS ORDERED: LIDOCAINE HCL 10 APPL CARTRIDGE TP SCH (21:00)
[2019-04-13] MEDS ORDERED: METOCLOPRAMIDE HCL 5 MG/ML VIAL IV PRN (02:05)
[2019-04-13] MEDS: HYDROmorphone HCL 2 MG TABLET PO PRN (03:04)
[2019-04-13 06:55] LABS: Anion Gap 14.4 mmol/L (6.8-13.8); Calcium * 9.4 mg/dL (7.9-10.9); Estimated Creat Clear 66.9; Potassium 3.4 mmol/L (3.4-4.6)
[2019-04-13] MEDS ORDERED: METOCLOPRAMIDE HCL 5 MG/ML VIAL IV SCH (07:00)
--- NOTE | 2019-04-13 07:21 | PN ---
Subjective - Date and Time Seen Date: 04/13/19 Time: 07:20 Subjective Narrative: Mrs. Sawyer has been awake most of the night due to pain. This morning she rates it as a 10. She remarks she cannot stand it. She is alert and oriented this morning. There is no sign of sedation. Her blood pressure and pulse are both up consistent with uncontrolled pain. The on-call physician last night decreased her Dilaudid to 4 mg 4 times a day as needed, because of concern for potential sedation. However, she had been followed by the [facility] until it closed. Their regimen which had been stable was fentanyl patches 100 mcg every 48 hours plus Dilaudid 8 mg 4 t imes daily on a routine basis. When the clinic closed, we continue the exact same pain regimen as the pain clinic, and she had done well with that until her admission for this hospitalization. She is now in a lot of pain and not sedated. We will gradually increase her pain medication until her pain is controlled. The uncontrolled pain may also be the reason for her vomiting. She states she has vomited about 5 times through the night. The nurse reports the vomitus is in small amounts. The patient stated that the IV Reglan works well for her nausea, but wears off too soon. She is also on ondansetron. Her O2 saturation this morning is 98% on room air. She was hypotensive with a slow respiratory rate when she was in the emergency room. Although she was appropriately treated with IV fluids and then Levophed, her hypotension was not related to hypovolemia, but rather a toxic direct effect of medication. Most likely it was due to multiple medications, although a good part of it was opiates, as she responded several times to Narcan in the emergency room. The current plan is to remove as possible all other sedating medications. Objective - Review of Systems Generalized/Overall Review: Reports: Weakness EENTM: Denies: Eye Pain, Blurred Vision Respiratory: Denies: Cough, Shortness of Breath Cardiac: Reports: Edema - Chronic. Denies: Chest Pain Abdominal: Reports: Nausea, Vomiting. Denies: Hematemesis, Abdominal Pain Genitourinary Symptoms: Reports: Burning - Only off-and-on, Frequency Musculoskeletal Complaints: Reports: Back Pain - Severe. Low back. Chronic. Failed back syndrome. Neurological: Reports: Anxiety - Due to pain Skin: Denies: Lesions, Rash Endocrine: Reports: No Symptoms Reported Misc: All systems neg except as marked - Vitals Vitals: Last Vital Signs Temp 36.5 C 04/13/19 06:57 Pulse 106 H 04/13/19 06:57 Resp 16 04/13/19 06:57 BP 160/87 H 04/13/19 06:57 Pulse Ox 98 04/13/19 06:57 - Abnormal Lab Findings Abnormal Lab Findings: Abnormal Lab Results 04/13/19 Range/Units 06:42 Anion Gap 14.4 H (6.8-13.8) mmol/L - Exam Constitutional: Present: Alert, Oriented x3, Cooperative, Well developed, Well nourished, Acute distress - Due to pain, Obese ENT Exam: Present: normal ENT inspection, hearing grossly normal Neck: Present: normal inspection. Absent: lymphadenopathy (R), lymphadenopathy (L), thyromegaly Breasts: Present: Exam deferred Respiratory: Present: lungs clear, no respiratory distress Cardiovascular/Chest: Present: regular rate, rhythm, no gallop, no JVD, no murmur - No murmur is heard at the present time., edema - Lower extremities chronic Abdomen: Present: Normal bowel sounds, soft, nontender, nondistended, no hepatospenomegaly, no masses Extremity: Present: normal range of motion, normal capillary refill, pedal edema Skin Exam: Present: normal color, warm/dry, no cyanosis Neurologic: Absent: normal mood/affect - Anxious due to pain Appearance: Present: appropriate appearance, appropriate insight, neat, no memory impairment Eye contact: Present: cooperative, good eye contact Thoughts: Present: normal thought pattern Cauti Physician Documentation - Urinary Catheter Management Urethral (Murphy) Date of Insertion: 04/11/19 Time of Insertion: 03:30 Date of Removal: 04/12/19 Assessment/Plan Plan Narrative: Her pain is not controlled, with elevated blood pressure and pulse. She is not sedated. Her O2 sat on room air is 98%. We will work it gradually getting her pain control medications back to her usual chronic pain medication. Today we will increase her Dilaudid to 6 mg every 6 hours. At home she was taking 8 mg every 6 hours. At the present time we do not plan to add medication for insomnia. She has vomited perhaps 5 times last night. The ondansetron by itself was not helping. IV Reglan seems to help. For the time being we will continue regular doses of IV Reglan. Her urine culture ended up no growth. He has a history of chronic recurrent urinary tract infections. When it is time for her to go home, we will discharge her on nasal spray Narcan. Otherwise our proposed home medication list is as follows: Fentanyl patch 100 mcg every 48 hours and Dilaudid 8 mg 4 times daily on a regular basis. What ever medication, if any, required for control of nausea. Otherwise methenamine hippurate 1 g p.o. twice daily, polyethylene glycol 17 g p.o. daily, vitamin B complex 1 p.o. daily, levothyroxine 200 mcg daily, furosemide 40 mg p.o. twice daily (she has chronic lower extremity edema which becomes severe enough that her skin weeps and she develops ulcers), potassium chloride 40 mEq p.o. 3 times daily, famotidine 20 mg p.o. daily, ergocalciferol 50,000 units every week, atorvastatin 80 mg p.o. daily, bupropion 100 mg, 12- hour sustained release, p.o. at at bedtime, lidocaine patches 2 or 3 of them topically daily, topiramate 100 mg p.o. twice daily for migraine, enteric-coated aspirin 81 mg daily, Dantrium 100 mg p.o. 3 times daily, Colace 200 mg p.o. twice daily, granisetron 1 tablet p.o. twice daily, loratadine 10 mg p.o. daily, Myrbetriq 25 mg p.o. daily, and Imitrex 100 mg 1 to 2 tablets p.o. daily as needed headache. Depending on how she is doing she may also require baclofen 20 mg p.o. 3 times daily at discharge. We will plan to send her home as soon as her pain is controlled and she is no longer vomiting. - Problems/Diagnosis (1) Acute alteration in mental status Problem: Resolved Narrative: Due to direct effects of medications, complicated by hypotension. Therefore her alteration in mental statics is toxic. (2) Medication overdose Problem: Resolved Qualifiers: Encounter type: subsequent encounter Injury intent: accidental or unintentional Qualified Code(s): T50.901D - Poisoning by unspecified drugs, medicaments and biological substances, accidental (unintentional), subsequent encounter Narrative: Multiple medication effects, but mostly opiates. The other sedating medications contributed. Most likely she became confused on the night of admission. She does not really remember that evening. (3) Hypotension Problem: Acute Qualifiers: Hypotension type: hypotension due to drug Qualified Code(s): I95.2 - Hypotension due to drugs Narrative: By definition, her hypotension was severe enough to constitute shock. There were also alterations in mental functioning, however the primary reason for that was medication adverse reaction. Because the hypotension was directly due to medications, it is shock related to toxicity. (4) Hypokalemia Problem: Resolved (5) Chronic intractable pain Problem: Chronic Narrative: With acute exacerbation. Most likely related to less than her usual pain medication. As possible we will try to avoid other sedating medications. 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 She has severe intractable insomnia. We explained that we do not want to add any not absolutely necessary sedating medications. She has had multiple treatment approaches to her insomnia, none of which worked particularly well. We will refer her as an outpatient to a sleep specialist. (9) CAD (coronary artery disease) Problem: Chronic Qualifiers: Coronary Disease-Associated Artery/Lesion type: unspecified vessel or lesion type [place] vs. transplanted heart: [place] heart Associated angina: without angina Qualified Code(s): I25.10 - Atherosclerotic heart disease of [place] coronary artery without angina pectoris
[2019-04-13] MEDS: ONDANSETRON 8 MG TAB.RAPDIS PO SCH ×2 (07:30→15:09)
[2019-04-13] MEDS: HYDROmorphone HCL 2 MG TABLET PO SCH ×3 (07:31→19:13)
[2019-04-13] MEDS: ENOXAPARIN SODIUM 40 MG/0.4 ML SYRG SC SCH (09:58)
[2019-04-13] MEDS: LIDOCAINE 1 PATCH ADH..PATCH TP SCH (09:58)
[2019-04-13] MEDS: METOCLOPRAMIDE HCL 10 MG TABLET PO SCH ×3 (13:13→22:44)
[2019-04-13] MEDS: GRANISETRON PO SCH ×2 (15:11→21:04)
[2019-04-13] MEDS: ACETAMINOPHEN 325 MG TABLET PO PRN ×2 (16:57→22:44)
[2019-04-14] MEDS: HYDROmorphone HCL 2 MG TABLET PO SCH ×2 (01:07→07:22)
[2019-04-14] MEDS: METOCLOPRAMIDE HCL 10 MG TABLET PO SCH ×2 (04:56→11:12)
[2019-04-14] MEDS: fentaNYL 100 MCG PATCH.TD72 TD SCH (07:20)
[2019-04-14] MEDS: GRANISETRON PO SCH (08:46)
[2019-04-14] MEDS: LIDOCAINE 1 PATCH ADH..PATCH TP SCH (08:47)
[2019-04-14] MEDS: ENOXAPARIN SODIUM 40 MG/0.4 ML SYRG SC SCH (10:13)
[2019-04-14] MEDS: ACETAMINOPHEN 325 MG TABLET PO PRN (11:14)
[2019-04-14] MEDS ORDERED: amLODIPine BESYLATE 10 MG TABLET PO ONE (11:40)
--- NOTE | 2019-04-14 12:02 | DS ---
Date of Discharge:: 04/14/19 Description of Stay: 58-year-old female admitted for accidental overdose by pain medications. Patient takes several pain meds including opioids for chronic back and bilateral knee pain, she has a history of failed back syndrome which has been treated at a pain center in [place]. However on the day of the hospitalization the patient took her routine meds in addition to a new increase dose of an unknown medication according to her , and was later observed to be very lethargic and had decreased sensorium. Her became alarmed and brought her to the ER where patient was treated with Narcan in order to reverse the effects of the medications. She improved and was later placed in the special care unit for observation and her PCP was notified. During the hospitalization her pain medications were held in order to avoid worsening sedation but patient started complaining of uncontrolled pain which kept her blood pressure and pulse elevated, therefore pain medications were gradually reinstated. Patient also complained of ongoing vomiting and has been treated with several different antiemetics, currently she reports a small amount of vomiting after breakfast this morning but nursing staff said this was a insignificant amount it was more saliva than vomitus. She reports adequate control of her pain at the moment and her only complaint is nausea therefore the patient will be administered her antiemetics to help with that symptom. Herself and her were in agreement that she be discharged home with reconciliation of her routine medications but she will be sent with prescription of specific medication per the instruction of her PCP. Vitals at the moment was stable and patient does not demonstrate any acute distress. We will go on and discharge her home. She was instructed to continue her clear liquid diet for now but to gradually try to progress and see how much she tolerates that she complains of nausea and occasional vomiting. Patient was also provided with prescriptions for Narcan in the event of an opioid overdose as well as pain medications, all other routine medications were reconciled for her to continue taking at home. She was also instructed to follow-up with her primary care doctor in 1 week. Procedures Performed: none Results and Findings: Lab Pending Results 04/11/19 03:10: Salicylates 14.0, Valproic Acid 47.3 L 04/11/19 03:28: WBC 6.6, RBC 4.53, Hgb 14.2, Hct 44.6, MCV 98.5, MCH 31.3 H, MCHC 31.8 L, RDW 13.6, Plt Count 230, MPV 9.9, Immature Gran % (Auto) 0.60 H, Immature Gran # (Auto) 0.04 H, Neutrophils % 66.4, Lymphocytes % 21.4, Monocytes % 8.4, Eosinophils % 2.4, Basophils % 0.8, Nucleated RBC % 0.0, Neutrophils # 4.4, Lymphocytes # 1.41 L, Monocytes # 0.6, Eosinophils # 0.2, Absolute Basophils 0.1 04/11/19 03:28: ESR 52 H 04/11/19 03:28: PT 10.0, INR (Anticoag Therapy) 1.01, PTT (Gordon) 31.0 04/11/19 03:28: Sodium 137, Plasma Sodium 138, Potassium 2.9 L, Chloride 99, Carbon Dioxide 24.5, Anion Gap 16.4 H, BUN 31 H, Creatinine 1.25, Est GFR (Non- Af Amer) 46 L D, BUN/Creatinine Ratio 24.8 H, Random Glucose 139 H, Calcium 8.8, Calcium Adj for Albumin 9.0, Total Bilirubin 0.2, AST 10, ALT 9 L, Alkaline Phosphatase 113, Total Protein 7.7, Albumin 3.4 04/11/19 03:28: Salicylates 13.8, Acetaminophen Less than 0.2 L 04/11/19 03:34: Urine Color Yellow, Urine Appearance Slightly cloudy, Urine pH 5.5, Ur Specific [place] 1.025, Urine Protein 30 H, Urine Glucose (UA) Negative, Urine Ketones Negative, Urine Blood 50 H, Urine Nitrate Negative, Urine Bilirubin Negative, Prot Sulfosalicylic Acd 1+, Urine Urobilinogen Normal, Ur Leukocyte Esterase 100 H, Urine RBC Trace, Urine WBC 0-5, Ur Epithelial Cells 0- 5, Amorphous Sediment Moderate - 2+ H, Urine Bacteria 2+ H, Urine Culture Comments Culture to follow 04/11/19 03:34: Urine Opiates Screen Positive H, Barbiturate Screen Positive H, Ur Phencyclidine Scrn Negative, Urine Amphetamine Negative, U Benzodiazepines Scrn Positive H, Urine Cocaine Screen Negative, Urine Marijuana (THC) Negative 04/11/19 11:06: Sodium 142, Plasma Sodium 143 H, Potassium 4.6 D, Chloride 108 H, Carbon Dioxide 25.8, Anion Gap 12.8, BUN 27 H, Creatinine 1.07, Est GFR (Non- Af Amer) 56 L D, BUN/Creatinine Ratio 25.2 H, Random Glucose 133 H, Calcium 7.9, Salicylates 6.1 04/12/19 06:23: WBC 6.7, RBC 4.22, Hgb 13.3, Hct 40.9, MCV 96.9, MCH 31.5 H, MCHC 32.5, RDW 13.6, Plt Count 198, MPV 9.9, Immature Gran % (Auto) 0.40, Immature Gran # (Auto) 0.03, Neutrophils % 70.6, Lymphocytes % 17.3 L, Monocytes % 9.2 H, Eosinophils % 2.1, Basophils % 0.4, Nucleated RBC % 0.0, Neutrophils # 4.7, Lymphocytes # 1.16 L, Monocytes # 0.6, Eosinophils # 0.1, Absolute Basophils 0.0 04/12/19 06:23: Sodium 136, Plasma Sodium 136, Potassium 3.5 D, Chloride 103, Carbon Dioxide 25.4, Anion Gap 11.1, BUN 13 D, Creatinine 0.66, Est GFR (Non-Af Amer) 97 D, BUN/Creatinine Ratio 19.7, Random Glucose 98, Calcium 8.5, Calcium Adj for Albumin 9.1, Total Bilirubin 0.4, AST 10, ALT 8 L, Alkaline Phosphatase 100, Total Protein 6.9, Albumin 2.9 L 04/13/19 06:42: Sodium 138, Plasma Sodium 138, Potassium 3.4, Chloride 100, Carbon Dioxide 27.0, Anion Gap 14.4 H, BUN 11, Creatinine 0.61, Est GFR (Non-Af Amer) 106, BUN/Creatinine Ratio 18.0, Random Glucose 105, Calcium 9.4 Discharge Location: Home Disposition: Home self-care Condition: Fair Face to Face Encounter completed per CMS Guidelines: No Discharge Activity: Activity as tolerated Discharge Diet: Clear Liquids Referrals: Hoang Bruce MD [Primary Care Provider] - Additional Patient Instructions (free text): Follow-up with Dr. Carlson on Monday 04/16 at 9:00 a.m. in the [facility]. Prescriptions (Any new or edited meds): Furosemide [Lasix] 40 mg PO Q12H 30 Days #60 tab Transmission Status: Pending to [place], [place] Naloxone HCl [Narcan] 4 mg NS PRN PRN #12 spray PRN Reason: Opiate Reversal Metoclopramide HCl [Reglan] 10 mg PO Q6H PRN #30 tab PRN Reason: Nausea And Vomiting Transmission Status: Pending to [place], [place] Complete Home Medications List: Complete Home Medication List: methenamine hippurate 1 gram tablet 100 mg PO BID tab 06/21/18 polyethylene glycol 3350 17 gram/dose oral powder 17 gm PO DAILY g 06/21/18 vitamin B complex 1 tab PO DAILY 06/21/18 levothyroxine 200 mcg tablet 200 mcg PO DAILY #30 tab 06/22/18 chlorthalidone 25 mg tablet 25 mg PO DAILY #30 tab 09/01/18 famotidine 20 mg tablet 20 mg PO DAILY #30 tab 10/09/18 olanzapine 10 mg tablet 10 mg PO DAILY #30 tab 11/06/18 ergocalciferol (vitamin D2) 50,000 unit capsule 50,000 unit PO QWEEK #14 cap 12/04/18 atorvastatin 80 mg tablet 80 mg PO DAILY #90 tab 12/05/18 bupropion HCl 100 mg tablet,12 hr sustained-release 200 mg PO HS #60 ea 01/02/19 potassium chloride 20 mEq tablet,extended release(part/cryst) 40 meq PO BID tab 01/17/19 baclofen 20 mg tablet 20 mg PO TID #90 tab 01/29/19 lidocaine 5 % topical patch 2 - 3 patch TP DAILY #90 ea 01/29/19 naloxegol 25 mg tablet 25 mg PO DAILY #30 tab 01/29/19 topiramate 200 mg tablet 200 mg PO BID #60 tab 03/19/19 estradiol-norethindrone acet 1 mg-0.5 mg tablet 1 tab PO DAILY #28 tab 04/02/19 fentanyl 100 mcg/hr transdermal patch 100 mcg TP Q48H #15 ea 04/04/19 Aspirin [Aspirin EC] 81 mg PO DAILY 04/11/19 Butalb/Acetaminophen/Caffeine [Fioricet] 2 tab PO TID PRN 04/11/19 Dantrolene Sodium [Dantrium] 100 mg PO TID 04/11/19 Divalproex Sodium [Depakote ER] 1,000 mg PO HS 04/11/19 Docusate Sodium [Colace] 200 mg PO BID 04/11/19 Granisetron HCl [Kytril] 1 tab PO BID 04/11/19 HYDROmorphone HCL [Dilaudid] 8 mg PO QID 04/11/19 LORazepam [Ativan] 0.5 mg PO BID PRN 04/11/19 Loratadine 10 mg PO DAILY 04/11/19 Mirabegron [Myrbetriq] 25 mg PO DAILY 04/11/19 Pumpkin Seed Extract/Soy Germ [Azo Bladder Control Capsule] 300 mg PO PRN PRN 04/11/19 SUMAtriptan SUCCINATE [Imitrex] 1 - 2 tab PO DAILY PRN 04/11/19 Furosemide [Lasix] 40 mg PO Q12H 30 Days #60 tab 04/14/19 Metoclopramide HCl [Reglan] 10 mg PO Q6H PRN #30 tab 04/14/19 Naloxone HCl [Narcan] 4 mg NS PRN PRN #12 spray 04/14/19
[2019-04-14 13:17] VITALS: BP 144/84
== END 2019-04-14 13:35 | disposition home or self-care (01) | DRG 917 ==
LOC: ER 03:01 → SCU 06:34 → MS 04-12 13:32
PROVIDERS: ADMIT Internal Medicine; ATTEND Allergy & Immunology
CPT/HCPCS: 36415; 70450; 71010; 71045; 80048; 80053; 80164; 80307; 80329; 81001; 85025; 85610; 85652; 85730; 87086; 93005; 96361; 96365; 96375; 99285; G0480; J0131